=== PATIENT | female | born 1975 | race African-American/Black ===

== ENCOUNTER 2019-07-19 09:53 | Emergency (ER) | payer OTHER ==
[~2019-07-19] VITALS: Ht 160 cm; Wt 63.6 kg
[~2019-07-19 09:53] MED LIST: ALBU8.5H8 IH; BUPR-93 PO; BUSP15 PO; HYD50 PO; QUET200T PO
[2019-07-19] MEDS ORDERED: SERT50TA12 PO (09:58)
[2019-07-19] MEDS ORDERED: CLON.5 PO (09:58)
[2019-07-19] MEDS ORDERED: DICL75TA5 PO (09:58)
[2019-07-19] MEDS ORDERED: HydrOXYzine PAMOATE 50 MG CAPSULE PO ONE (11:30)
[2019-07-19 12:20] VITALS: BP 128/83
== END 2019-07-19 12:41 | disposition home or self-care (01) ==
LOC: EMS 09:53
DX: B82.9 Intestinal parasitism, unspecified (principal); F41.9 Anxiety disorder, unspecified; J45.909 Unspecified asthma, uncomplicated; F32.9 Major depressive disorder, single episode, unspecified; F17.210 Nicotine dependence, cigarettes, uncomplicated; F12.90 Cannabis use, unspecified, uncomplicated; Z88.5 Allergy status to narcotic agent; Z88.8 Allergy status to other drugs, medicaments and biological substances; Z79.899 Other long term (current) drug therapy